=== PATIENT | male | born 1960 | race Two or more races ===

== ENCOUNTER 2019-12-01 11:34 | Emergency (ER) | payer OTHER ==
[~2019-12-01] VITALS: Ht 175.3 cm; Wt 77.1 kg
[2019-12-01 11:44] VITALS: BP 156/86
[2019-12-01] MEDS ORDERED: METHOCARBAMOL 500 MG TAB PO ONE (13:15)
[2019-12-01] MEDS ORDERED: methylPREDNISolone SOD SUCC 125 MG/2 ML VL IM ONE (13:15)
== END 2019-12-01 14:40 | disposition home or self-care (01) ==
LOC: ER 11:34
DX: M54.16 Radiculopathy, lumbar region (principal); E07.9 Disorder of thyroid, unspecified
CPT/HCPCS: 72131; 96372; 99284; J2930

== ENCOUNTER 2025-02-24 16:40 | Emergency (ER) | payer OTHER, MEDICARE ==
[~2025-02-24] VITALS: Ht 175.3 cm; Wt 72.7 kg
[2025-02-24 16:44] VITALS: BP 123/81; PULSE 93; RESP 18; TEMP 98.2; O2SAT 95
== END 2025-02-24 19:16 | disposition left against medical advice (07) ==
LOC: ER 16:40
DX: M54.59 Other low back pain (principal); Z53.21 Procedure and treatment not carried out due to patient leaving prior to being seen by health care provider